=== PATIENT | male | born 1985 | race Caucasian/White ===

== ENCOUNTER 2020-12-04 03:23 | Emergency (ER) | payer BC ==
--- NOTE | 2020-12-04 03:25 | EDM.PDOC ---
ED HPI GENERAL MEDICAL PROBLEM - General Stated Complaint: ALLERGY ISSUES; CAN'T HEAR OUT OF RIGHT EAR Time Seen by Provider: 12/04/20 03:23 Source of Information: Reports: Patient History Limitations: Reports: No Limitations - History of Present Illness INITIAL COMMENTS - FREE TEXT/NARRATIVE: 35-year-old male past medical history allergic rhinitis, sleep apnea presents for sinus congestion, right ear pain, decreased hearing in the right ear. Patient notes that he struggles with seasonal allergies and typically takes medications for this. He does a Flonase nose spray. He also notes that he has frequent waxy buildup in his ears. He notes decreased hearing from the right ear and pain in the ear. He denies any fevers. right ear Pain Score (Numeric/FACES): 5 - Related Data Allergies Allergy/AdvReac Type Severity Reaction Status Date / Time No Known Allergies Allergy Verified 12/04/20 03:36 Home Meds: Home Meds Carbamide Peroxide [Debrox 6.5% Otic Soln] 5 drop OT BID 4 Days #1 bottle 12/04/20 [Rx] Ciprofloxacin/Dexamethasone [Ciprodex Otic Susp] 4 drop OT BID 7 Days #1 bottle 12/04/20 [Rx] Oxymetazoline HCl [Nasal [place]] 1 spray INH DAILY 12/04/20 [History] Pseudoephedrine HCl [Sudafed] 60 mg PO Q6H PRN #20 tablet 12/04/20 [Rx] Past Medical History HEENT History: Reports: None Cardiovascular History: Reports: Heart Murmur Respiratory History: Reports: None Gastrointestinal History: Reports: None Genitourinary History: Reports: None Musculoskeletal History: Reports: None Neurological History: Reports: None Psychiatric History: Reports: None Endocrine/Metabolic History: Reports: None Hematologic History: Reports: None Immunologic History: Reports: None Oncologic (Cancer) History: Reports: None Dermatologic History: Reports: None Social & Family History - Family History Family Medical History: No Pertinent Family History - Caffeine Use Caffeine Use: Reports: Soda - Living Situation & Occupation Living situation: Reports: Single Occupation: Unemployed ED ROS GENERAL - Review of Systems Review Of Systems: Comprehensive ROS is negative, except as noted in HPI. ED EXAM, GENERAL - Physical Exam Exam: See Below Exam Limited By: No Limitations General Appearance: Alert, WD/WN, No Apparent Distress Ears: Normal External Exam, Normal Canal, Hearing Grossly Normal, Normal TMs, Other (Cerumen impaction in right ear, erythema of external auditory canal) Nose: Normal Inspection Throat/Mouth: Normal Inspection, Normal Lips, Normal Oropharynx, Normal Voice, No Airway Compromise Head: Atraumatic, Normocephalic Neck: Normal Inspection Respiratory/Chest: No Respiratory Distress, Lungs Clear, Normal Breath Sounds, No Accessory Muscle Use Cardiovascular: Normal Peripheral Pulses, Regular Rate, Rhythm Extremities: Normal Inspection Neurological: Alert, Normal Cognition Psychiatric: Normal Affect, Normal Mood Skin Exam: Warm, Dry, Intact, Normal Color Course - Vital Signs Last Recorded V/S: Last Vital Signs Temp 97.8 F 12/04/20 03:39 Pulse 58 L 12/04/20 03:39 Resp 18 12/04/20 03:39 BP Pulse Ox 96 12/04/20 03:39 - Re-Assessments/Exams Free Text/Narrative Re-Assessment/Exam: 12/04/20 04:07 We will treat with Sudafed, cerumen was removed manually from the right ear and reveals an erythematous external auditory canal, will discharge with Debrox and Ciprodex for potential otitis externa Departure - Departure Time of Disposition: 04:04 Disposition: Home, Self-Care 01 Condition: Good Clinical Impression: Cerumen impaction Qualifiers: Laterality: bilateral Qualified Code(s): H61.23 - Impacted cerumen, bilateral Otitis externa Qualifiers: Otitis externa type: unspecified type Chronicity: acute Laterality: right Qualified Code(s): H60.501 - Unspecified acute noninfective otitis externa, right ear Allergic rhinitis Qualifiers: Allergic rhinitis trigger: unspecified Allergic rhinitis seasonality: unspecified Qualified Code(s): J30.9 - Allergic rhinitis, unspecified - Discharge Information Prescriptions: Ciprofloxacin/Dexamethasone [Ciprodex Otic Susp] 4 drop OT BID 7 Days #1 bottle Carbamide Peroxide [Debrox 6.5% Otic Soln] 5 drop OT BID 4 Days #1 bottle Pseudoephedrine HCl [Sudafed] 60 mg PO Q6H PRN #20 tablet PRN Reason: Congestion Instructions: Otitis Externa, [id number], Earwax Buildup, Adult, Allergic Rhinitis, Adult, [id number] Referrals: PCP,None [Primary Care Provider] - Additional Instructions: Ear nose and throat specialists: Dr. Jair Yusuf [facility], [address] [place], [place] [id number] Dr. Julio Cesar Aaron [facility] [address] [place] [address] The following information is given to patients seen in the emergency department who are being discharged to home. This information is to outline your options for follow-up care. We provide all patients seen in our emergency department with a follow-up referral. The need for follow-up, as well as the timing and circumstances, are variable depending upon the specifics of your emergency department visit. If you don't have a primary care physician on staff, we will provide you with a referral. We always advise you to contact your personal physician following an emergency department visit to inform them of the circumstance of the visit and for follow-up with them and/or the need for any referrals to a consulting specialist. The emergency department will also refer you to a specialist when appropriate. This referral assures that you have the opportunity for follow-up care with a specialist. All of these measure are taken in an effort to provide you with optimal care, which includes your follow-up. Under all circumstances we always encourage you to contact your private physician who remains a resource for coordinating your care. When calling for follow-up care, please make the office aware that this follow-up is from your recent emergency room visit. If for any reason you are refused follow-up, please contact the [facility] Emergency Department at and asked to speak to the emergency department charge nurse. Please follow up with your primary care physician. If you do not have a primary care physician, see below: [facility] [address], [place] [id number] [facility] [address] [place] [address] [facility] [address] [place] [address] Sepsis Event Note (ED) - Focused Exam Vital Signs: Vital Signs Temp Pulse Resp Pulse Ox 12/04/20 03:39 97.8 F 58 L 18 96
[2020-12-04 04:19] VITALS: PULSE 59
== END 2020-12-04 04:19 | disposition home or self-care (01) ==
LOC: MW.ED 03:23
DX: H61.23 Impacted cerumen, bilateral (principal); H60.501 Unspecified acute noninfective otitis externa, right ear; J30.9 Allergic rhinitis, unspecified; Z79.899 Other long term (current) drug therapy
CPT/HCPCS: 69210; 99282-25; 99283